=== PATIENT | female | born 1960 | race African-American/Black ===

== ENCOUNTER 2021-03-21 17:18 | Emergency (ER) | payer OTHER ==
[~2021-03-21] VITALS: Ht 167.6 cm; Wt 77.3 kg
[2021-03-21 20:01] VITALS: BP 122/69
== END 2021-03-21 20:24 | disposition home or self-care (01) ==
LOC: EMS 17:21
DX: S92.421A Displaced fracture of distal phalanx of right great toe, initial encounter for closed fracture (principal); W22.8XXA Striking against or struck by other objects, initial encounter; Y93.89 Activity, other specified; Y92.89 Other specified places as the place of occurrence of the external cause; Y99.8 Other external cause status
CPT/HCPCS: 99283